=== PATIENT | female | born 1965 | race Caucasian/White ===

== ENCOUNTER 2017-04-25 12:25 | Emergency (ER) | payer OTHER ==
--- NOTE | ~2017-04-25 | CR230 ---
[facility]. [facility] RADIOLOGY TEXT RESULTS PATIENT: ABRIL ACEVEDO LOCATION: SED : 61 UNIT #: [id number] AGE: [address]: Matti Fink MD SEX: F ORDER DR: [id number] [place] [id number] E MR#: [id number] #: [id number] NAME: ABRIL ACEVEDO : 1965 SEX: F STUDY DATE/TIME: 04/25/2017 13:02 UNIT: SED ROOM: STUDY DESCRIPTION: CR Shoulder Min 2 View Rt Attending Physician: Matti Fink M.D. Ordering Physician: Matti Fink M.D. Primary Care Physician: Primary Care Physician No MEDICAL IMAGING REPORT This report is preliminary unless electronic signature is present. EXAM Right shoulder HISTORY Shoulder pain for the past week. Worse with range of motion. No known trauma. TECHNIQUE 3 views of the right shoulder were obtained. FINDINGS AP view with internal and external rotation of the shoulder girdle shows satisfactory relationship of the humeral head and glenoid fossa. The joint space is normal. There is no identifiable fracture or dislocation or bony destructive process about the shoulder girdle anatomy. The acromioclavicular joint is normal. There is no radiopaque foreign body in the region. IMPRESSION Normal shoulder. Dictated by... Adria Gregorio M.D. THIS IS AN ELECTRONICALLY VERIFIED REPORT Adria Gregorio M.D. at 04/25/2017 4:54 PM RLF/reagan TD: 04/25/2017 14:13 JOB #: [id number] [facility] RADIOLOGY TEXT RESULTS PATIENT: ABRIL ACEVEDO LOCATION: SED : 61 UNIT #: [id number] AGE: [address]: Matti Fink MD SEX: F ORDER DR: MEDICAL IMAGING REPORT Page 1 of 1
== END 2017-04-25 14:27 | disposition home or self-care (01) ==
LOC: SED 12:25
DX: S46.911A Strain of unspecified muscle, fascia and tendon at shoulder and upper arm level, right arm, initial encounter (principal); X58.XXXA Exposure to other specified factors, initial encounter
CPT/HCPCS: 73030; 99283